=== PATIENT | female | born 1960 | race American Indian/Alaskan Native ===

== ENCOUNTER 2019-06-28 10:53 | Outpatient (CLI) | payer MEDICAID ==
--- NOTE | 2019-06-28 11:55 | XRay Report ---
CERVICAL SPINE, 4 VIEWS INDICATION: Cervicalgia. COMPARISON: None. IMPRESSION: Normal alignment and bone mineralization. Mild to moderate degenerative disc narrowing and anterior spurring is identified throughout the cervical spine. The posterior elements and facet j oints are unremarkable. No acute osseous or soft tissue abnormality. LUMBOSACRAL SPINE, 5 VIEWS INDICATION: M54.5) LOW BACK PAIN. COMPARISON: None. IMPRESSION: There is mild levocurvature of the lumbar spine on the AP image. 3 mm anterolisthesis of L4 with respect to L5 is identified appears to be secondary to degenerative facet arthropathy. The r emaining lumbar vertebra are normal in alignment. No evidence for acute fracture, compression deform ity or bone lesion. Severe disc space narrowing and circumferential spurring is noted at L5-S1. Ther e is mild disc space narrowing at the remaining levels. Moderate to severe diffuse hypertrophic facet arthropathy is also identified. L4-5 appears to be the most affected level. The oblique images are s lightly limited. There is no evidence for pars defects. Mild to moderate multilevel neural foraminal narrowing is suspected at the lowest 3 levels. The visualized sacrum and SI joints are unremarkable Signer Name: William Sharif Jr, MD Signed: 06/28/2019 11:51 AM Workstation Name: [id number]
== END 2019-06-28 10:54 | disposition home or self-care (01) ==
LOC: XRAY 10:53
PROVIDERS: ATTEND Physical Medicine & Rehabilitation
DX: M54.2 Cervicalgia (principal); M54.5 Low back pain
CPT/HCPCS: 72040; 72110